=== PATIENT | female | born 2000 | race Caucasian/White ===

== ENCOUNTER 2022-02-18 14:38 | Emergency (ER) | payer MEDICAID ==
[~2022-02-18] VITALS: Ht 152.4 cm; Wt 71.0 kg
[2022-02-18 14:45] VITALS: BP 102/53
== END 2022-02-18 19:43 | disposition left against medical advice (07) ==
LOC: ER 14:38
DX: Z53.21 Procedure and treatment not carried out due to patient leaving prior to being seen by health care provider (principal)
CPT/HCPCS: 71045; 99283

== ENCOUNTER 2022-11-25 13:55 | Emergency (ER) | payer MEDICAID, OTHER ==
[~2022-11-25] VITALS: Ht 157.5 cm; Wt 74.0 kg
[2022-11-25 13:57] VITALS: BP 122/44
[2022-11-25] MEDS ORDERED: ACET15SO5 LEFT EAR (18:29)
[2022-11-25] MEDS ORDERED: ACET-2708 MT (18:29)
[2022-11-25] MEDS ORDERED: ACETAMINOPHEN 325MG TABLET PO ONE (18:30)
== END 2022-11-25 18:49 | disposition home or self-care (01) ==
LOC: ER 13:55
DX: O26.891 Other specified pregnancy related conditions, first trimester (principal); H66.92 Otitis media, unspecified, left ear; O99.341 Other mental disorders complicating pregnancy, first trimester; Z3A.01 Less than 8 weeks gestation of pregnancy
CPT/HCPCS: 99282

== ENCOUNTER 2023-01-28 02:22 | Observation (INO) | payer OTHER ==
[~2023-01-28] VITALS: Ht 157.5 cm; Wt 85.7 kg
[~2023-01-28 02:22] MED LIST: ACET-2708 MT; ACET15SO13 LEFT EAR
[2023-01-28] MEDS ORDERED: PNV1TABL76 PO (03:22)
== END 2023-01-28 09:00 | disposition home or self-care (01) ==
LOC: 8 EST LDRP 02:22
PROVIDERS: ADMIT Specialist; ATTEND Specialist
DX: O26.892 Other specified pregnancy related conditions, second trimester (principal); R10.10 Upper abdominal pain, unspecified; R06.02 Shortness of breath; O62.9 Abnormality of forces of labor, unspecified; Z3A.22 22 weeks gestation of pregnancy
CPT/HCPCS: 59025; 76805; 99281; G0378

== ENCOUNTER 2025-07-07 01:55 | Emergency (ER) | payer OTHER ==
[~2025-07-07] VITALS: Ht 162.6 cm; Wt 95.0 kg
[~2025-07-07 01:55] MED LIST changes: +PNV1TABL76 PO
[2025-07-07 02:11] VITALS: O2SAT 100
[2025-07-07 03:18] LABS: BASOPHILS % 0.3 % (0.0-2.0); EOSINOPHILS % 1.1 % (0.0-5.0); HEMATOCRIT. 40.9 % (36.0-48.0); HEMOGLOBIN. 13.4 g/dL (12.0-16.0); LYMPHOCYTES % 28.2 % (20.0-50.0); MEAN PLATELET VOLUME 9.0 fl (7.4-10.4); MONOCYTES % 5.9 % (2.0-8.0); NEUTROPHILS % 64.5 % (40.0-76.0); PLATELET 299 x1000/uL (130-400); RED BLOOD CELL COUNT 4.81 mill/uL (4.2-5.4); RED CELL DISTRIBUTION WIDTH 14.7 % (11.6-14.6)
[2025-07-07 03:23] LABS: HCG SCREEN NEGATIVE
[2025-07-07 03:25] LABS: CREATININE 0.6 mg/dL (0.6-1.0)
[2025-07-07 03:26] LABS: UREA NITROGEN BLOOD 17 mg/dL (9-23)
[2025-07-07 03:28] LABS: ASPARTATE AMINOTRANSFERASE 17 IU/L (<34); BILIRUBIN DIRECT < 0.1 mg/dL (<=3.0); BILIRUBIN TOTAL 0.3 mg/dL (0.1-1.0); PROTEIN TOTAL 7.1 g/dL (6.0-8.3)
[2025-07-07] MEDS: KETOROLAC 15MG/ML VIAL IM ONE (04:03)
[2025-07-07] MEDS ORDERED: NAPR-1176 MT (05:21)
[2025-07-07 05:33] LABS: CLARITY URINE HAZY (CLEAR); COLOR URINE YELLOW (YELLOW)
[2025-07-07 05:34] LABS: GLUCOSE URINE NEGATIVE (NEGATIVE); KETONES URINE TRACE (NEGATIVE); PH URINE 6.0 (4.5-8.0); PROTEIN URINE NEGATIVE (NEGATIVE); SPECIFIC GRAVITY URINE 1.034 (1.005-1.030)
[2025-07-07 05:35] LABS: LEUKOCYTE ESTERASE URINE NEGATIVE (NEGATIVE); NITRITE URINE NEGATIVE (NEGATIVE); OCCULT BLOOD URINE TRACE (NEGATIVE); UROBILINOGEN URINE 1.0 E.U./dL (0.2-1.0)
[2025-07-07 05:43] VITALS: BP 115/73; PULSE 65; RESP 18; TEMP 36.8; O2SAT 99
[2025-07-07 05:47] LABS: SQUAMOUS EPITHELIAL CELL URINE FEW /lpf (RARE/1+)
[2025-07-07 05:48] LABS: RBC URINE 0-2 /hpf (0-2); WBC URINE 0-2 /hpf (0-2)
[2025-07-07 05:49] LABS: BACTERIA URINE 1+
== END 2025-07-07 05:44 | disposition home or self-care (01) ==
LOC: ER 01:55
DX: R10.9 Unspecified abdominal pain (principal); F41.9 Anxiety disorder, unspecified; Z98.890 Other specified postprocedural states; Z79.899 Other long term (current) drug therapy
CPT/HCPCS: 99285; 74176; 71045; 80076; 80048; 81003; 81025; 84703; 83690; 85025; 85379; 36415; 96372; J1885